=== PATIENT | male | born 1950 | race Caucasian/White ===

== ENCOUNTER 2018-08-21 05:13 | Emergency (ER) | payer MEDICARE, OTHER, SELFPAY ==
[2018-08-21 05:20] VITALS: BP 188/92; PULSE 88; RESP 20; TEMP 36.8; O2SAT 99; BMI 28.0
--- NOTE | 2018-08-21 05:28 | ED.ALLEREA ---
HPI - Allergic Reaction General Chief complaint: Allergic Reaction Stated complaint: states allergic reaction face is swollen left side Time Seen by Provider: 08/21/18 05:20 Source: patient Mode of arrival: ambulatory Limitations: no limitations History of Present Illness HPI narrative: Patient is 67-year-old male who presents with lip swelling rash and pruritus. He says that he has been taking amoxicillin as for the last 2 weeks for a dental infection. He noticed yesterday he had some itching. He went to bed woke up and had significant upper lip swelling. No difficulty talking or swallowing. His tongue he has started feeling tingling but has no swelling. He has obvious hives on his legs and arms. He also takes enalapril for blood pressure. Which he has been on for number of years. MD complaint: allergic reaction, hives and facial swelling Related Data Home Medications Medication Instructions Recorded Confirmed ASPIRIN (Aspirin Low Dose) 81 mg PO QDAY #0 06/10/10 07/29/18 Enalapril Maleate (Vasotec) 20 mg PO QDAY #0 06/10/10 07/29/18 IBUPROFEN (Motrin / Advil) 200 mg PO PRN #0 06/10/10 07/29/18 fluticasone propionate 50 1 spray NASAL DAILY 09/11/17 07/29/18 mcg/actuation nasal spray,suspension sildenafil (antihypertensive) 20 20 mg PO TID 09/11/17 07/29/18 mg tablet Respironics Dreamstation CPAP #1 ea 07/29/18 07/29/18 Previous Rx's Medication Instructions Recorded epinephrine 0.3 mg IM Q10M PRN #1 each 08/21/18 prednisone 50 mg PO DAILY #5 tab 08/21/18 Allergies Allergy/AdvReac Type Severity Reaction Status Date / Time No Known Drug Allergies Allergy Unverified 07/29/18 14:44 Review of Systems Review of Systems ROS Unobtainable: All systems reviewed & are unremarkable except as noted in HPI and below Constitutional Denies chills, Denies fever(s), Denies lethargy and Denies weakness Eyes Denies change in vision, Denies eye discharge, Denies irritation and Denies loss of vision ENT Ears, Nose, Mouth, and Throat: Reports as per HPI, Denies change in voice, Reports lip swelling, Denies neck pain, Denies sore throat, Denies throat swelling and Denies tongue swelling Cardiovascular Denies chest pain, Denies irregular heart rhythm, Denies lightheadedness, Denies palpitations, Denies dyspnea, Denies dyspnea on exertion and Denies orthopnea Respiratory Denies cough, Denies dyspnea, Denies dyspnea on exertion and Denies wheezing Genitourinary Denies hematuria, Denies flank pain, Denies urinary incontinence and Denies urinary urgency Musculoskeletal Denies neck pain Integumentary/Breasts Denies pruritus, Denies erythema, Denies rash and Denies wounds Neurologic Denies loss of vision and Denies weakness Endocrine Denies palpitations Allergic/Immunologic Reports lip swelling, Denies throat swelling, Denies tongue swelling and Denies wheezing [facility]LY [facility] Medical History Hypertension (Acute) Surgical History History of hernia surgery (Acute) History of lumbar discectomy (Acute) History of vasectomy (Acute) Family History Father Cancer Mother Hypertension Brother No problems noted. Social History Smoking Status: Former smoker caffeine: Yes (2-3 per day) frequency: 1-2 times per week Family History Father Cancer Mother Hypertension Brother No problems noted. Social History Smoking Status: Former smoker caffeine: Yes (2-3 per day) frequency: 1-2 times per week Exam Initial Vital Signs Initial Vital Signs: Vital Signs Temperature 98.3 F 08/21/18 05:20 Pulse Rate 88 08/21/18 05:20 Respiratory Rate 20 08/21/18 05:20 Blood Pressure 188/92 H 08/21/18 05:20 Pulse Oximetry 99 08/21/18 05:20 GENERAL: Alert male with obvious upper lip swelling and in no acute distress. HEENT: Head atraumatic,EOMI, pupils reactive, upper lip swelling more left-sided facial swelling no tongue swelling no uvula deviation no hoarseness of voice CARDIOVASCULAR: Regular rate and rhythm without murmurs, rubs or gallops. RESPIRATORY: Breath sounds equal bilaterally, no wheezes rales or rhonchi. ABDOMEN: Soft, nontender. Normoactive bowel sounds all 4 quadrants. No guarding or rebound. EXTREMITIES: Normal range of motion, no clubbing or edema. Neurovascularly intact NEUROLOGICAL: Alert and oriented x4.Normal gait and speech. Cranial nerves II through XII grossly intact. SKIN: Hives knees and arms. Course Orders Ordered: Discontinued Medications Diphenhydramine HCl (Benadryl) 25 mg IV NOW ONE Stop: 08/21/18 05:29 Last Admin: 08/21/18 05:39 Dose: 25 mg Epinephrine HCl (Adrenalin) 0.3 mg IM NOW ONE Stop: 08/21/18 05:29 Last Admin: 08/21/18 05:36 Dose: 0.3 mg Methylprednisolone (Solu-Medrol 125 Mg Vial) 125 mg IV NOW ONE Stop: 08/21/18 05:29 Last Admin: 08/21/18 05:35 Dose: 125 mg Vital Signs - 8 hr 08/21/18 05:20 08/21/18 05:48 08/21/18 06:34 Temperature 98.3 F Pulse Rate 88 86 75 Respiratory Rate 20 22 15 Blood Pressure 188/92 H Blood Pressure [Left Arm] 170/87 H 154/72 H Pulse Oximetry 99 98 97 MDM - Allergic Reaction MDM Narrative Medical decision making narrative: Difficult to tell if patient's reaction it is from amoxicillin or gallop girl. However with the urticaria and hives I think likely from amoxicillin. Initially given epinephrine Solu-Medrol and Benadryl. He did have significant improvement although still swollen. I recommend that he stop his enalapril and discussed with this PCP alternatives also he should stop the amoxicillin as well. Discharge Plan Departure Patient Disposition: Home Clinical Impression: Allergic reaction Qualifiers: Encounter type: initial encounter Qualified Code(s): T78.40XA - Allergy, unspecified, initial encounter Instructions: DI for Anaphylaxis Activity Restrictions/Additional Instructions: *You have been diagnosed with allergic reaction *What to do: Not sure what medication your allergic to. Possible antibiotic versus blood pressure medication enalapril. The stopped taking both of these medications immediately. *Continue to take medications as directed Epinephrine injection if needed for tongue swelling or lip swelling Prednisone 50 mg once daily for 5 days Benadryl 25-50 mg every 6 hours if needed for itching *Follow up with your primary care provider in 2-3 days *Return to ER if you should have increasing tongue swelling, lip swelling, hoarse voice, difficulty breathing or any new, worsening or concerning symptoms Prescriptions: New epinephrine 0.3 mg/0.3 mL auto-injector 0.3 mg IM Q10M PRN (Reason: anaphylaxis) Qty: 1 RF: 0 prednisone 50 mg tablet 50 mg PO DAILY Qty: 5 RF: 0 No Action Enalapril Maleate (Vasotec) 20 mg PO QDAY Qty: 0 RF: 0 ASPIRIN (Aspirin Low Dose) 81 mg PO QDAY Qty: 0 RF: 0 IBUPROFEN (Motrin / Advil) 200 mg PO PRN Qty: 0 RF: 0 Respironics Dreamstation CPAP Qty: 1 RF: 0 sildenafil (antihypertensive) 20 mg tablet 20 mg PO TID RF: 0 fluticasone propionate 50 mcg/actuation spray,suspension 1 spray NASAL DAILY RF: 0 Referrals: Luiz Paul MD [Primary Care Provider] -
[2018-08-21] MEDS: methylPREDNISolone 125 MG/2 ML VIAL IV (05:35)
[2018-08-21] MEDS: EPINEPHrine 1 MG/ML AMPUL 0.3 MG IM (05:36)
[2018-08-21] MEDS: diphenhydrAMINE 50 MG/ML VIAL 25 MG IV (05:39)
[2018-08-21 05:48] VITALS: BP 170/87; PULSE 86; RESP 22; O2SAT 98
[2018-08-21 06:34] VITALS: BP 154/72; PULSE 75; RESP 15; O2SAT 97
[2018-08-21 07:47] VITALS: BP 160/81; PULSE 79; RESP 18; TEMP 36.8; O2SAT 95
== END 2018-08-21 07:46 | disposition home or self-care (01) ==
PROVIDERS: Emergency Provider Emergency Medicine; Family Provider Family Medicine; PCP Family Medicine
DX: T78.40XA Allergy, unspecified, initial encounter (principal)
CPT/HCPCS: 36591; 96372; 96374; 96375; 99282; 99284; J0171; J1200; J2930

== ENCOUNTER 2018-10-21 06:24 | Day surgery (SDC) | payer MEDICARE, OTHER, SELFPAY ==
[2018-10-21] VITALS (7 sets, daily range): BP systolic 88–136; BP diastolic 54–90; PULSE 51–96; RESP 8–16; TEMP 36.2–36.5; O2SAT 95–99; BMI 26.8
--- NOTE | 2018-10-21 | PATH_ITS ---
[facility] Accession Number: [id number] . 01 Material submitted: . body - POLYP AT 55 CM . 02 Diagnosis: Colon at 55 cm, Polyp: Serrated lesion, cannot exclude sessile serrated adenoma. [facility]/10/22/2018 . 02 Electronically signed: . Etienne Martin MD, PhD, Pathologist NPI- [id number] . 01 Gross description: . POLYP AT 55 CM: Received in formalin are 4 fragment(s) of musa, soft tissue measuring 0.1 x 0.1 x 0.1 cm to 0.3 x 0.3 x 0.2 cm which is entirely submitted and submitted entirely in 1 cassette(s) /DMC /DMC . 02 Pathologist provided ICD-10: D12.6 . 02 CPT . 156870 Performed at: 01 [facility] [address], [place], [place] [id number] MD Dash Kowalski MD Phone: [phone] Performed at: 02 [facility] [address] [place], [place] [id number] MD Earline Murphy MD Phone: [phone]
--- NOTE | 2018-10-21 07:17 | PM.HP.1 ---
History of Present Illness Date Patient Seen: 10/21/18 Time Patient Seen: 07:28 Chief complaint: [id number] Narrative: Patient presents for colorectal screening. His most recent colonoscopy was 5 years ago which he reports as normal His father and grandfather both had colorectal cancer in advanced age. On further history denies any recent gastrointestinal symptoms. No nausea, vomiting, abdominal pain, loss of appetite, unexplained weight loss, change in bowel habits, diarrhea, constipation, melena, hematochezia, or bright red blood per rectum. Patient History Medical History Hypertension (Acute) Surgical History History of hernia surgery (Acute) History of lumbar discectomy (Acute) History of vasectomy (Acute) Family History Father Cancer Mother Hypertension Brother No problems noted. Social History Smoking Status: Former smoker caffeine: Yes (2-3 per day) frequency: 1-2 times per week Family & Social History Family History Father Cancer Mother Hypertension Brother No problems noted. Tobacco & Substance use: Smoking Status Former smoker alcohol intake frequency holiday/special occasion Substance Use Type does not use Meds Home Medications Medication Instructions Recorded Confirmed Type Enalapril Maleate (Vasotec) 20 mg PO QDAY #0 06/10/10 10/21/18 History Respironics Dreamstation CPAP #1 ea 07/29/18 07/29/18 History Allergies Allergy/AdvReac Type Severity Reaction Status Date / Time amoxicillin Allergy Swelling Verified 10/21/18 07:20 of Lip/Tongue/Throat Review of Systems Review of Systems All systems reviewed & are unremarkable except as noted in HPI and below Exam Vital Signs (past 8 hours): General-adult male no acute distress, well nourished HEENT-moist mucous membranes, no scleral icterus Neck-supple with full range of motion, no lymphadenopathy Chest- no labored respirations, clear to auscultation bilaterally Cardiac-regular rate and rhythm Abdomen-soft, nontender, non distended Extremities-no edema, warm well perfused Neurological-alert and oriented x 3. No focal deficits Skin-normal temperature and turgor, no rashes or ulcers Assessment & Plan Assessment & Plan narrative: Patient is requiring colorectal screening. Colonoscopy is recommended. Technical details were discussed. Risks, benefits, alternatives explained. Risks including but not limited to sedation, aspiration, bleeding, pain, missed lesion, incomplete examination, need for further radiographic studies, colonic perforation, need for major abdominal surgery, and all attendant risks major surgery were discussed at length. All questions were answered to their satisfaction, and they voiced understanding.
[2018-10-21] MEDS: SODIUM CHLORIDE 0.9% 1,000 ML 200 ML IV (07:30)
--- NOTE | 2018-10-21 07:30 | PM.PREOP ---
Pre-operative Note Interval Note History & Physical reviewed/Exam performed by Physician: Yes Changes to H&P: No ASA Class (for procedural sedation): II
--- NOTE | 2018-10-21 07:55 | PM.OP.ENDO ---
Operative Date/Time/Diagnoses Date of procedure: 10/21/18 Time of procedure: 07:55 Pre-op diagnosis: screening colonoscopy Procedure & Clinicians Study performed: colonoscopy Same procedure as scheduled: Yes Indications: screening. Last scope was 5 years ago family history of colon cancer Surgeon: Hank Puga Procedure Notes SCOAP/Timeout: performed Procedure in detail: Digital rectal exam performed normal. Scope inserted into the anus advanced through the rectum sigmoid descending transverse and ended at the ileocecal valve. The scope was carefully withdrawn. The quality of the prep was excellent. One polyp identified at 55 cm biopsies taken, flat an unable to snare. Scope withdrawal time: 14 Sedation minutes: 35 Findings: polyp Specimen(s): other (polyp 55 cm) Impression: polyp Recommendations: Colonscopy in 5 years Disposition: same day surgery
[2018-10-21] MEDS: MIDAZOLAM 5 MG/5 ML VIAL IV (08:09)
[2018-10-21] MEDS: fentaNYL 250 MCG/5 ML INJ IV (08:09)
== END 2018-10-21 09:32 | disposition home or self-care (01) ==
PROVIDERS: PCP Student in an Organized Health Care Education/Training Program; Visit Provider Surgery
PROC: 0DJD8ZZ Inspection of Lower Intestinal Tract, Via Natural or Artificial Opening Endoscopic (ICD-10-PCS; CPT 45378; principal; 2018-10-21 07:45)
DX: Z12.11 Encounter for screening for malignant neoplasm of colon (principal); D12.6 Benign neoplasm of colon, unspecified; I10 Essential (primary) hypertension; Z80.0 Family history of malignant neoplasm of digestive organs; Z87.891 Personal history of nicotine dependence
CPT/HCPCS: 45380; 88305; 99152; 99153; J2250; J3010

== ENCOUNTER → 2020-04-13 16:21 | Outpatient (CLI) | payer MEDICARE, OTHER, SELFPAY ==
--- NOTE | 2020-04-13 | DI.RAD.S_ITS ---
PROCEDURE: XR KNEE RT 3V INDICATIONS: RIGHT KNEE PAIN TECHNIQUE: 3 views of the knee were acquired. COMPARISON: None. FINDINGS: Bones: No fractures or dislocations. No suspicious bony lesions. Mild medial joint space narrowing. Scattered degenerative subchondral sclerosis and spurring. Soft tissues: Eaji-dl-mdcbrmvy joint effusion. Scattered vascular calcifications. IMPRESSION: Degenerative changes as above. Mild to moderate joint effusion. If the patient's pain or other symptoms persist, consider further evaluation with MRI Dictated by: William Munguia M.D. on 04/13/2020 at 17:14 Approved by: William Munguia M.D. on 04/13/2020 at 17:21
== END ==
PROVIDERS: PCP Student in an Organized Health Care Education/Training Program; Referring Provider Student in an Organized Health Care Education/Training Program; Visit Provider Student in an Organized Health Care Education/Training Program
DX: M25.561 Pain in right knee (principal); M25.461 Effusion, right knee
CPT/HCPCS: 73562

== ENCOUNTER → 2020-04-16 17:37 | Outpatient (CLI) | payer MEDICARE, OTHER, SELFPAY ==
--- NOTE | 2020-04-16 17:39 | DI.MRI.S_ITS ---
PROCEDURE: MR KNEE RT WO CON INDICATIONS: RIGHT KNEE PAIN TECHNIQUE: Noncontrast sagittal PD fast spin echo and T2 fast spin echo with fat saturation, sagittal 3-D FLASH with fat saturation; coronal T1 spin echo and PD fast spin echo with fat saturation, and axial PD fast spin echo with fat saturation through the knee. COMPARISON: [facility], CR, XR KNEE RT 3V, 04/13/2020, 16:34. FINDINGS: Image quality: Excellent. Menisci: There is a horizontal oblique tear of the body of the medial meniscus extending to the femoral articular surface with a small superiorly displaced flap in the medial femoral gutter. There is also a suspected small flap tear at the posterior root attachment of the medial meniscus projecting superiorly towards the intercondylar notch. The lateral meniscus is intact. Cruciate ligaments: The anterior and posterior cruciate ligaments appear intact. Medial structures: Mild thickening of the proximal medial collateral ligament is likely the sequela of a prior sprain. Some of the deep fibers appear to be chronically torn near their femoral attachments. The semimembranosus tendon insertions appear intact. Visualized portions of the pes anserinus tendons appear normal. No abnormal bursal fluid. Lateral structures: The lateral collateral ligament, long and short heads of the biceps femoris tendon appear intact. The popliteus tendon demonstrates mild tendinosis at its femoral insertion.. No signs of posterolateral corner injury. Iliotibial band appears normal. Anterior structures: The quadriceps and patellar tendons appear intact. Patellar alignment is normal. No femoral trochlear dysplasia or ventral trochlear prominence. No edema in the infrapatellar fat pad. Bones and cartilage: No bone marrow contusions or fractures. There is high-grade partial-thickness cartilage thinning in the weight-bearing portion of the medial femorotibial compartment. The lateral compartment articular cartilages demonstrate mild surface irregularity without a full-thickness defect. There is high-grade partial-thickness cartilage loss in the median ridge of the patella and deep cartilage fissuring in the trochlear groove.. Joint space: A small knee joint effusion is present. There is a small medial popliteal cyst. IMPRESSION: 1. Horizontal oblique tear of the body of the medial meniscus extending to the femoral articular surface with a superiorly displaced flap in the medial femoral gutter. Additional partial tear of the posterior root attachment of the medial meniscus with a small superiorly displaced meniscal flap. 2. Chronic moderate grade sprain of the proximal medial collateral ligament. 3. 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 There is also focal grade 3 chondromalacia in the anterior compartment and mild grade 2 chondromalacia in the lateral compartment. 4. Small joint effusion. Small medial popliteal cyst. Dictated by: Tahir Javed M.D. on 04/19/2020 at 8:01 Approved by: Tahir Javed M.D. on 04/19/2020 at 8:25
== END ==
PROVIDERS: PCP Student in an Organized Health Care Education/Training Program; Referring Provider Student in an Organized Health Care Education/Training Program; Visit Provider Student in an Organized Health Care Education/Training Program
DX: M25.561 Pain in right knee (principal); S83.241A Other tear of medial meniscus, current injury, right knee, initial encounter; S83.411A Sprain of medial collateral ligament of right knee, initial encounter; M94.261 Chondromalacia, right knee; M25.461 Effusion, right knee; M71.21 Synovial cyst of popliteal space [Baker], right knee
CPT/HCPCS: 73721

== ENCOUNTER 2020-12-28 16:00 | Outpatient (RCR) | payer MEDICARE, OTHER, SELFPAY ==
--- NOTE | 2020-12-07 14:08 | PT.OIE ---
Current Diagnoses Unilateral primary osteoarthritis, right knee (12/07/20) Stiffness of right knee, not elsewhere classified (12/07/20) Aftercare following joint replacement surgery (12/07/20) Past Medical History (Last Updated 09/18/20 @ 21:43 by CHUN Curtis) Chronic pain of multiple joints Depressive disorder, not elsewhere classified (2003) Fatigue History of hernia surgery History of lumbar discectomy History of vasectomy Hypertension (~2003) Insomnia Obstructive sleep apnea Snoring Past Surgical History (Last Reviewed 09/18/20 @ 21:25 by CHUN Curtis) History of hernia surgery History of lumbar discectomy History of vasectomy Visit Care Team Role Provider Type Mariella Ribera MD Primary Care Provider Physician Specialty: Family Practice Address: [address] [place] [address], [facility] [place], [place], [facility] Email: [email or web address] Frieda Carballo PA-C Attending Provider Non-Staff Referring Provider Specialty: General Surgery Address: [address] [place] [address], [id number] Email: Physical Therapy Initial Evaluation PT-OP-A Visit Information Start: 12/07/20 13:47 Freq: Status: Active Protocol: Document 12/07/20 10:30 DCW (Rec: 12/07/20 14:08 DCW [id number]) Out-Patient Physical Therapy Visit Information Visit Information Visit Type Initial Evaluation Visit Start Time 10:30 Visit Stop Time 11:15 Total Visit Minutes 45 Visit Number 1 Number of INVENTORY MANAGEMENT SPECIALIST Visits 0 Evaluation Information Evaluation Date 12/07/20 PT-OP-B Current Condition Start: 12/07/20 13:47 Freq: Status: Active Protocol: Document 12/07/20 10:30 DCW (Rec: 12/07/20 14:08 DCW [id number]) Current Condition History of Current Condition Onset Date 11/30/20 Current Complaints Right knee pain, stiffness s/p partial knee replacement History of Current Condition Pt is a 69 year old male presenting to skilled therapy one week s/p right medial partial knee replacement. Pt has mainly been using his SPC to get around. Notes he felt great the first day or two after surgery, but on post-op day three, he was really stiff and sore. Pt reports he was instructed to work on getting it (his knee) to 90? and getting up and walking. Pt notes he has had a left foot drop for the last ~48 years, unsure of the cause, but believes he may have had polio in his youth. PT-OP-C Subjective Start: 12/07/20 13:47 Freq: Status: Active Protocol: Document 12/07/20 10:30 DCW (Rec: 12/07/20 14:08 DCW [id number]) OP-PT Subjective Patient Comments Patient Comments I'd like to get back to walking Swish with my . She's quite a bit younger than I am, so I need to be able to keep up. Patient Reported Progress Improving Patient Questionnaires Lower Extremity Functional Scale LEFS Score 21.25% LEFS Impairment 60 to 79% Impaired (Score 17- 31) OP-PT Pain Assessment Pain Assessment Grid Paper Pain Assessment Grid Completed Yes Location Right Knee Intensity 8 Scale Used Numeric (0 - 10) Description Acute PT-OP-E Functional Tests Start: 12/07/20 13:47 Freq: Status: Active Protocol: Document 12/07/20 10:30 DCW (Rec: 12/07/20 14:08 DCW [id number]) Functional Tests 6 Minute Walk Test Distance 617' Device Used SPC Comments 1.71 ft/sec PT-OP-K Range of Motion Start: 12/07/20 13:47 Freq: Status: Active Protocol: Document 12/07/20 10:30 DCW (Rec: 12/07/20 14:08 DCW [id number]) Knee Goniometric Range of Motion Knee Right Patient Position Supine Flexion Active (degrees) 86 Flexion Passive (degrees) 90 Extension Active (degrees) 5 Extension Passive (degrees) 3 Knee ROM Limitations Knee ROM Limitations Soft Tissue Tightness,Pain, Swelling PT-OP-M Strength Start: 12/07/20 13:47 Freq: Status: Active Protocol: Document 12/07/20 10:30 DCW (Rec: 12/07/20 14:08 DCW [id number]) Knee Strength Knee Manual Muscle Testing Right Flexion (S2) 4 Good Extension (L3) 4+ Good+ Left Flexion (S2) 4+ Good+ Extension (L3) 5 Normal PT-OP-Q Treatments Start: 12/07/20 13:47 Freq: Status: Active Protocol: Document 12/07/20 10:30 DCW (Rec: 12/07/20 14:08 DCW [id number]) Therapeutic Exercises Sitting Exercises 3 Sitting Exercise Name Extension stretch Side right 2 Sitting Exercise Name Heel slides Side right 1 Sitting Exercise Name Ankle pumps Side right PT-OP-T Assessment and Plan Start: 12/07/20 13:47 Freq: Status: Active Protocol: Document 12/07/20 10:30 DCW (Rec: 12/07/20 14:08 DC [id number]) Physical Therapy Assessment Rehab Potential Rehabilitation Potential Excellent Evaluation Complexity Number of Personal Factors/Comorbidities 1-2 Number of Body Systems Impaired 1-2 Clinical Presentation at Evaluation Stable Impairments Impairments Activity Tolerance,Functional Activities,Functional Mobility ,Gait,Pain,ROM,Strength Goals Three Impairment Pt displays limitations to right knee ROM, 5-86? Penitentiary Goal (LTG) Pt to improve right knee ROM to 0-120? in order to return to prior level of function LTG Duration 02/06/21 Two Impairment Pt unable to participate in walks around [place] with his Short Term Goal (STG) Pt to increase 6 MWT to 1000' without an assistive device to show increased tolerance to gait STG Duration 01/06/21 Penitentiary Goal (LTG) Pt to return to walking a full lap around [place] without increased knee pain LTG Duration 02/06/21 One Impairment Pt does not have an appropriate home exercise program Short Term Goal (STG) Pt does not have an appropriate HEP STG Duration 01/06/21 Assessment Summary Assessment Pt presents with signs and symptoms consistent with one week s/p right partial knee replacement. 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 Right knee extension doing very well at 5?, minimal extension lag at this point. Flexion needs some improvement, only 86? at time of evaluation, expect increased flexion with stretching and exercise. Pt receptive to HEP, anxious to get working to improve recovery time. Pt will likely do very well with rehab. Physical Therapy Plan Frequency and Duration Frequency of Treatment 2x/Week Duration of Treatment Two months Plan of Care Start Date 12/07/20 Plan of Care End Date 02/06/21 Therapeutic Interventions Therapeutic Interventions Gait Training,Joint Mobilizations,Manual Therapy, Neuromuscular Re-education, Patient/Caregiver Education, Self-Care/Home Management, Therapeutic Activities, Therapeutic Exercises Modalities Cold Pack/Ice Massage,Electric Stimulation,Hot Packs, Ultrasound Next Visit Focus/Plan Next Note Type Treatment Note Next Visit Plan ROM, strengthening
--- NOTE | 2020-12-07 14:09 | PT.OPPOC ---
Physical, Occupational & Speech Therapy At [facility] Current Diagnoses Unilateral primary osteoarthritis, right knee (12/07/20) Stiffness of right knee, not elsewhere classified (12/07/20) Aftercare following joint replacement surgery (12/07/20) Visit Care Team Role Provider Type Mariella Ribera MD Primary Care Provider Physician Specialty: Family Practice Address: [address] [place] [address], [address], [place], [address] Email: [email or web address] Frieda Carballo PA-C Attending Provider Non-Staff Referring Provider Specialty: General Surgery Address: [address] [place] [address], [place], [address] Email: Plan Of Care PT-OP-T Assessment and Plan Start: 12/07/20 13:47 Freq: Status: Active Protocol: Document 12/07/20 10:30 DCW (Rec: 12/07/20 14:08 DCW [id number]) Physical Therapy Assessment Rehab Potential Rehabilitation Potential Excellent Evaluation Complexity Number of Personal Factors/Comorbidities 1-2 Number of Body Systems Impaired 1-2 Clinical Presentation at Evaluation Stable Impairments Impairments Activity Tolerance,Functional Activities,Functional Mobility ,Gait,Pain,ROM,Strength Goals Three Impairment Pt displays limitations to right knee ROM, 5-86? Air Conditioning Mechanic Goal (LTG) Pt to improve right knee ROM to 0-120? in order to return to prior level of function LTG Duration 02/06/21 Two Impairment Pt unable to participate in walks around [place] with his Short Term Goal (STG) Pt to increase 6 MWT to 1000' without an assistive device to show increased tolerance to gait STG Duration 01/06/21 Air Conditioning Mechanic Goal (LTG) Pt to return to walking a full lap around [place] without increased knee pain LTG Duration 02/06/21 One Impairment Pt does not have an appropriate home exercise program Short Term Goal (STG) Pt does not have an appropriate HEP STG Duration 01/06/21 Assessment Summary Assessment Pt presents with signs and symptoms consistent with one week s/p right partial knee replacement. 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 Right knee extension doing very well at 5?, minimal extension lag at this point. Flexion needs some improvement, only 86? at time of evaluation, expect increased flexion with stretching and exercise. Pt receptive to HEP, anxious to get working to improve recovery time. Pt will likely do very well with rehab. Physical Therapy Plan Frequency and Duration Frequency of Treatment 2x/Week Duration of Treatment Two months Plan of Care Start Date 12/07/20 Plan of Care End Date 02/06/21 Therapeutic Interventions Therapeutic Interventions Gait Training,Joint Mobilizations,Manual Therapy, Neuromuscular Re-education, Patient/Caregiver Education, Self-Care/Home Management, Therapeutic Activities, Therapeutic Exercises Modalities Cold Pack/Ice Massage,Electric Stimulation,Hot Packs, Ultrasound Next Visit Focus/Plan Next Note Type Treatment Note Next Visit Plan ROM, strengthening Plan of Care Dates Plan of Care Start Date 12/07/20 Plan of Care End Date 02/06/21 Electronically Signed by: Modesto Edwards, PT 12/07/20 [id number] Please Sign and Return: I have reviewed this Plan of Care and certify that the skilled therapy services above are required to meet the patient?s needs. Physician Signature Date Printed Name and Credentials Clinical Instructor Signature Printed Name and Credentials
--- NOTE | 2020-12-09 11:17 | PT.OTN ---
Current Diagnoses Unilateral primary osteoarthritis, right knee (12/09/20) Stiffness of right knee, not elsewhere classified (12/09/20) Aftercare following joint replacement surgery (12/09/20) Physical Therapy Treatment Note PT-OP-A Visit Information Start: 12/07/20 13:47 Freq: Status: Active Protocol: Document 12/09/20 10:30 DCW (Rec: 12/09/20 11:17 DCW [id number]) Out-Patient Physical Therapy Visit Information Visit Information Visit Type Treatment Note Visit Start Time 10:30 Visit Stop Time 11:15 Total Visit Minutes 45 Visit Number 2 Number of RETENTION SPECIALIST Visits 0 Evaluation Information Evaluation Date 12/07/20 PT-OP-B Current Condition Start: 12/07/20 13:47 Freq: Status: Active Protocol: Document 12/07/20 10:30 DCW (Rec: 12/07/20 14:08 DCW [id number]) Current Condition History of Current Condition Onset Date 11/30/20 Current Complaints Right knee pain, stiffness s/p partial knee replacement History of Current Condition Pt is a 69 year old male presenting to skilled therapy one week s/p right medial partial knee replacement. Pt has mainly been using his SPC to get around. Notes he felt great the first day or two after surgery, but on post-op day three, he was really stiff and sore. Pt reports he was instructed to work on getting it (his knee) to 90? and getting up and walking. Pt notes he has had a left foot drop for the last ~48 years, unsure of the cause, but believes he may have had polio in his youth. PT-OP-C Subjective Start: 12/07/20 13:47 Freq: Status: Active Protocol: Document 12/09/20 10:30 DCW (Rec: 12/09/20 11:17 DCW [id number]) OP-PT Subjective Patient Comments Patient Comments I did all those exercises, and then my knee swelled up a lot, so I stopped. PT-OP-E Functional Tests Start: 12/07/20 13:47 Freq: Status: Active Protocol: Document 12/07/20 10:30 DCW (Rec: 12/07/20 14:08 DCW [id number]) Functional Tests 6 Minute Walk Test Distance 617' Device Used SPC Comments 1.71 ft/sec PT-OP-K Range of Motion Start: 12/07/20 13:47 Freq: Status: Active Protocol: Document 12/07/20 10:30 DCW (Rec: 12/07/20 14:08 DCW [id number]) Knee Goniometric Range of Motion Knee Right Patient Position Supine Flexion Active (degrees) 86 Flexion Passive (degrees) 90 Extension Active (degrees) 5 Extension Passive (degrees) 3 Knee ROM Limitations Knee ROM Limitations Soft Tissue Tightness,Pain, Swelling PT-OP-M Strength Start: 12/07/20 13:47 Freq: Status: Active Protocol: Document 12/07/20 10:30 DCW (Rec: 12/07/20 14:08 DCW [id number]) Knee Strength Knee Manual Muscle Testing Right Flexion (S2) 4 Good Extension (L3) 4+ Good+ Left Flexion (S2) 4+ Good+ Extension (L3) 5 Normal PT-OP-Q Treatments Start: 12/07/20 13:47 Freq: Status: Active Protocol: Document 12/09/20 10:30 DCW (Rec: 12/09/20 11:17 DCW [id number]) Cardio Equipment Recumbent Bicycle Duration (Minutes) 5 Resistance 0 Seat Position 6 Other half rotations Therapeutic Exercises Supine Exercises 2 Supine Exercise Name Extension stretch Side right 1 Supine Exercise Name SAQ Side right Resistance 8# Standing Exercises 4 Standing Exercise Name Hip Abd Side bilateral Resistance Green Equipment Used T-band 3 Standing Exercise Name Hip Ext Side bilateral Resistance Green Equipment Used T-band 2 Standing Exercise Name TKE Side right Resistance Lv 2 Equipment Used T-band 1 Standing Exercise Name Step stretch Side right Manual Therapy Treatment Joint Mobilizations 1 Joint R Knee Direction P->A Grade II Body Position Hooklying Other Other Manual Treatments PROM manual flexion PT-OP-T Assessment and Plan Start: 12/07/20 13:47 Freq: Status: Active Protocol: Document 12/09/20 10:30 DCW (Rec: 12/09/20 11:17 DCW [id number]) Physical Therapy Assessment Impairments Impairments Activity Tolerance,Functional Activities,Functional Mobility ,Gait,Pain,ROM,Strength Goals Three Impairment Pt displays limitations to right knee ROM, 5-86? Lining Feller Goal (LTG) Pt to improve right knee ROM to 0-120? in order to return to prior level of function LTG Duration 02/06/21 Two Impairment Pt unable to participate in walks around [place] with his Short Term Goal (STG) Pt to increase 6 MWT to 1000' without an assistive device to show increased tolerance to gait STG Duration 01/06/21 Lining [place]eller Goal (LTG) Pt to return to walking a full lap around [place] without increased knee pain LTG Duration 02/06/21 One Impairment Pt does not have an appropriate home exercise program Short Term Goal (STG) Pt does not have an appropriate HEP STG Duration 01/06/21 Assessment Summary Assessment Pt tolerated treatment very well today, is having more swelling today vs his evaluation, but extension is approaching 0 and flexion measured at 94 today. Doing well with HEP. Physical Therapy Plan Frequency and Duration Frequency of Treatment 2x/Week Duration of Treatment Two months Plan of Care Start Date 12/07/20 Plan of Care End Date 02/06/21 Therapeutic Interventions Therapeutic Interventions Gait Training,Joint Mobilizations,Manual Therapy, Neuromuscular Re-education, Patient/Caregiver Education, Self-Care/Home Management, Therapeutic Activities, Therapeutic Exercises Modalities Cold Pack/Ice Massage,Electric Stimulation,Hot Packs, Ultrasound Next Visit Focus/Plan Next Note Type Treatment Note Next Visit Plan ROM, strengthening
--- NOTE | 2020-12-14 11:14 | PT.OTN ---
Current Diagnoses Unilateral primary osteoarthritis, right knee (12/14/20) Stiffness of right knee, not elsewhere classified (12/14/20) Aftercare following joint replacement surgery (12/14/20) Physical Therapy Treatment Note PT-OP-A Visit Information Start: 12/07/20 13:47 Freq: Status: Active Protocol: Document 12/14/20 10:30 DCW (Rec: 12/14/20 11:13 DCW [id number]) Out-Patient Physical Therapy Visit Information Visit Information Visit Type Treatment Note Visit Start Time 10:30 Visit Stop Time 11:15 Total Visit Minutes 45 Visit Number 3 Number of MOTOR RUNNER Visits 0 Evaluation Information Evaluation Date 12/07/20 PT-OP-B Current Condition Start: 12/07/20 13:47 Freq: Status: Active Protocol: Document 12/07/20 10:30 DCW (Rec: 12/07/20 14:08 DCW [id number]) Current Condition History of Current Condition Onset Date 11/30/20 Current Complaints Right knee pain, stiffness s/p partial knee replacement History of Current Condition Pt is a 69 year old male presenting to skilled therapy one week s/p right medial partial knee replacement. Pt has mainly been using his SPC to get around. Notes he felt great the first day or two after surgery, but on post-op day three, he was really stiff and sore. Pt reports he was instructed to work on getting it (his knee) to 90? and getting up and walking. Pt notes he has had a left foot drop for the last ~48 years, unsure of the cause, but believes he may have had polio in his youth. PT-OP-C Subjective Start: 12/07/20 13:47 Freq: Status: Active Protocol: Document 12/14/20 10:30 DCW (Rec: 12/14/20 11:13 DCW [id number]) OP-PT Subjective Patient Comments Patient Comments I've been using the small stationary bike at home, I can get all the way around on it, so I think it is bending better. PT-OP-E Functional Tests Start: 12/07/20 13:47 Freq: Status: Active Protocol: Document 12/07/20 10:30 DCW (Rec: 12/07/20 14:08 DCW [id number]) Functional Tests 6 Minute Walk Test Distance 617' Device Used SPC Comments 1.71 ft/sec PT-OP-K Range of Motion Start: 12/07/20 13:47 Freq: Status: Active Protocol: Document 12/07/20 10:30 DCW (Rec: 12/07/20 14:08 DCW [id number]) Knee Goniometric Range of Motion Knee Right Patient Position Supine Flexion Active (degrees) 86 Flexion Passive (degrees) 90 Extension Active (degrees) 5 Extension Passive (degrees) 3 Knee ROM Limitations Knee ROM Limitations Soft Tissue Tightness,Pain, Swelling PT-OP-M Strength Start: 12/07/20 13:47 Freq: Status: Active Protocol: Document 12/07/20 10:30 DCW (Rec: 12/07/20 14:08 DCW [id number]) Knee Strength Knee Manual Muscle Testing Right Flexion (S2) 4 Good Extension (L3) 4+ Good+ Left Flexion (S2) 4+ Good+ Extension (L3) 5 Normal PT-OP-Q Treatments Start: 12/07/20 13:47 Freq: Status: Active Protocol: Document 12/14/20 10:30 DCW (Rec: 12/14/20 11:13 DCW [id number]) Cardio Equipment Recumbent Bicycle Duration (Minutes) 5 Resistance 0 Seat Position 5 Other half-rotations Gym Equipment Shuttle Recovery Bilateral Squats Resistance 75# Shuttle Recovery Platform Stable Reps/Time hold end-range flexion Therapeutic Exercises Sidelying Exercises 1 Sidelying Exercise Name Hip abduction Side right Standing Exercises 2 Standing Exercise Name TKE Side right Resistance Lv 2 Equipment Used T-band Other Exercises 1 Other Exercise Name Step-ups/downs Side right Equipment Used 4 step Manual Therapy Treatment Joint Mobilizations 2 Joint R Patellofemoral Direction Inf-Sup Grade III Body Position Supine 1 Joint R Knee Direction P->A Grade II Body Position Hooklying Other Other Manual Treatments PROM manual flexion PT-OP-T Assessment and Plan Start: 12/07/20 13:47 Freq: Status: Active Protocol: Document 12/14/20 10:30 DCW (Rec: 12/14/20 11:13 DCW [id number]) Physical Therapy Assessment Impairments Impairments Activity Tolerance,Functional Activities,Functional Mobility ,Gait,Pain,ROM,Strength Goals Three Impairment Pt displays limitations to right knee ROM, 5-86? Pt Escort Goal (LTG) Pt to improve right knee ROM to 0-120? in order to return to prior level of function LTG Duration 02/06/21 Two Impairment Pt unable to participate in walks around [place] with his Short Term Goal (STG) Pt to increase 6 MWT to 1000' without an assistive device to show increased tolerance to gait STG Duration 01/06/21 Longterm Goal (LTG) Pt to return to walking a full lap around [place] without increased knee pain LTG Duration 02/06/21 One Impairment Pt does not have an appropriate home exercise program Short Term Goal (STG) Pt does not have an appropriate HEP STG Duration 01/06/21 Assessment Summary Assessment Pt ROM doing great post-op, increased PROM 0-114 and AROM 0-112 degrees. PT exhibiting no extension lag at this time. Physical Therapy Plan Frequency and Duration Frequency of Treatment 2x/Week Duration of Treatment Two months Plan of Care Start Date 12/07/20 Plan of Care End Date 02/06/21 Therapeutic Interventions Therapeutic Interventions Gait Training,Joint Mobilizations,Manual Therapy, Neuromuscular Re-education, Patient/Caregiver Education, Self-Care/Home Management, Therapeutic Activities, Therapeutic Exercises Modalities Cold Pack/Ice Massage,Electric Stimulation,Hot Packs, Ultrasound Next Visit Focus/Plan Next Note Type Treatment Note Next Visit Plan ROM, strengthening
--- NOTE | 2020-12-16 10:33 | PT.OTN ---
Current Diagnoses Unilateral primary osteoarthritis, right knee (12/16/20) Stiffness of right knee, not elsewhere classified (12/16/20) Aftercare following joint replacement surgery (12/16/20) Physical Therapy Treatment Note PT-OP-A Visit Information Start: 12/07/20 13:47 Freq: Status: Active Protocol: Document 12/16/20 09:45 DCW (Rec: 12/16/20 10:33 DCW [id number]) Out-Patient Physical Therapy Visit Information Visit Information Visit Type Treatment Note Visit Start Time 09:45 Visit Stop Time 10:30 Total Visit Minutes 45 Visit Number 4 Number of CAMPGROUND CLEANING ATTENDANT Visits 0 Evaluation Information Evaluation Date 12/07/20 PT-OP-B Current Condition Start: 12/07/20 13:47 Freq: Status: Active Protocol: Document 12/07/20 10:30 DCW (Rec: 12/07/20 14:08 DCW [id number]) Current Condition History of Current Condition Onset Date 11/30/20 Current Complaints Right knee pain, stiffness s/p partial knee replacement History of Current Condition Pt is a 69 year old male presenting to skilled therapy one week s/p right medial partial knee replacement. Pt has mainly been using his SPC to get around. Notes he felt great the first day or two after surgery, but on post-op day three, he was really stiff and sore. Pt reports he was instructed to work on getting it (his knee) to 90? and getting up and walking. Pt notes he has had a left foot drop for the last ~48 years, unsure of the cause, but believes he may have had polio in his youth. PT-OP-C Subjective Start: 12/07/20 13:47 Freq: Status: Active Protocol: Document 12/16/20 09:45 DCW (Rec: 12/16/20 10:33 DCW [id number]) OP-PT Subjective Patient Comments Patient Comments I'm a little slow today, I think I overdid it yesterday. Pt notes that he had a post- op appointment yesterday, they thought it looked good, but feel he should get scar mobs starting in a few days. PT-OP-E Functional Tests Start: 12/07/20 13:47 Freq: Status: Active Protocol: Document 12/07/20 10:30 DCW (Rec: 12/07/20 14:08 DCW [id number]) Functional Tests 6 Minute Walk Test Distance 617' Device Used SPC Comments 1.71 ft/sec PT-OP-K Range of Motion Start: 12/07/20 13:47 Freq: Status: Active Protocol: Document 12/07/20 10:30 DCW (Rec: 12/07/20 14:08 DCW [id number]) Knee Goniometric Range of Motion Knee Right Patient Position Supine Flexion Active (degrees) 86 Flexion Passive (degrees) 90 Extension Active (degrees) 5 Extension Passive (degrees) 3 Knee ROM Limitations Knee ROM Limitations Soft Tissue Tightness,Pain, Swelling PT-OP-M Strength Start: 12/07/20 13:47 Freq: Status: Active Protocol: Document 12/07/20 10:30 DCW (Rec: 12/07/20 14:08 DCW [id number]) Knee Strength Knee Manual Muscle Testing Right Flexion (S2) 4 Good Extension (L3) 4+ Good+ Left Flexion (S2) 4+ Good+ Extension (L3) 5 Normal PT-OP-Q Treatments Start: 12/07/20 13:47 Freq: Status: Active Protocol: Document 12/16/20 09:45 DCW (Rec: 12/16/20 10:33 DCW [id number]) Cardio Equipment Recumbent Bicycle Duration (Minutes) 6 Resistance 0 Seat Position 5 Other full rotations Gym Equipment Shuttle Recovery Bilateral Squats Resistance 75# Shuttle Recovery Platform Stable Reps/Time hold end-range flexion Therapeutic Exercises Sitting Exercises 5 Sitting Exercise Name HS Side right Resistance Lv 3 4 Sitting Exercise Name LAQ Side right Resistance 5# Standing Exercises 4 Standing Exercise Name Hip Abd Side bilateral Resistance Green Equipment Used T-band 3 Standing Exercise Name Hip Ext Side bilateral Resistance Green Equipment Used T-band 2 Standing Exercise Name TKE Side right Resistance Lv 2 Equipment Used T-band 1 Standing Exercise Name Step stretch Side right Other Exercises 1 Other Exercise Name Step-ups/downs Side right Equipment Used 4 step Manual Therapy Treatment Joint Mobilizations 2 Joint R Patellofemoral Direction Inf-Sup Grade III Body Position Supine 1 Joint R Knee Direction P->A Grade II Body Position Hooklying PT-OP-T Assessment and Plan Start: 12/07/20 13:47 Freq: Status: Active Protocol: Document 12/16/20 09:45 DCW (Rec: 12/16/20 10:33 DCW [id number]) Physical Therapy Assessment Impairments Impairments Activity Tolerance,Functional Activities,Functional Mobility ,Gait,Pain,ROM,Strength Goals Three Impairment Pt displays limitations to right knee ROM, 5-86? Manager Lab Goal (LTG) Pt to improve right knee ROM to 0-120? in order to return to prior level of function LTG Duration 02/06/21 Two Impairment Pt unable to participate in walks around [place] with his Short Term Goal (STG) Pt to increase 6 MWT to 1000' without an assistive device to show increased tolerance to gait STG Duration 01/06/21 Manager Lab Goal (LTG) Pt to return to walking a full lap around [place] without increased knee pain LTG Duration 02/06/21 One Impairment Pt does not have an appropriate home exercise program Short Term Goal (STG) Pt does not have an appropriate HEP STG Duration 01/06/21 Assessment Summary Assessment Pt continues to make great progress, AROM flexion to 119 degrees today. Physical Therapy Plan Frequency and Duration Frequency of Treatment 2x/Week Duration of Treatment Two months Plan of Care Start Date 12/07/20 Plan of Care End Date 02/06/21 Therapeutic Interventions Therapeutic Interventions Gait Training,Joint Mobilizations,Manual Therapy, Neuromuscular Re-education, Patient/Caregiver Education, Self-Care/Home Management, Therapeutic Activities, Therapeutic Exercises Modalities Cold Pack/Ice Massage,Electric Stimulation,Hot Packs, Ultrasound Next Visit Focus/Plan Next Note Type Treatment Note Next Visit Plan ROM, strengthening
--- NOTE | 2020-12-21 11:20 | PT.OTN ---
Current Diagnoses Unilateral primary osteoarthritis, right knee (12/21/20) Stiffness of right knee, not elsewhere classified (12/21/20) Aftercare following joint replacement surgery (12/21/20) Physical Therapy Treatment Note PT-OP-A Visit Information Start: 12/07/20 13:47 Freq: Status: Active Protocol: Document 12/21/20 10:30 DCW (Rec: 12/21/20 11:19 DCW [id number]) Out-Patient Physical Therapy Visit Information Visit Information Visit Type Treatment Note Visit Start Time 10:30 Visit Stop Time 11:15 Total Visit Minutes 45 Visit Number 5 Number of PASTER HAT LINING Visits 0 Evaluation Information Evaluation Date 12/07/20 PT-OP-B Current Condition Start: 12/07/20 13:47 Freq: Status: Active Protocol: Document 12/07/20 10:30 DCW (Rec: 12/07/20 14:08 DCW [id number]) Current Condition History of Current Condition Onset Date 11/30/20 Current Complaints Right knee pain, stiffness s/p partial knee replacement History of Current Condition Pt is a 69 year old male presenting to skilled therapy one week s/p right medial partial knee replacement. Pt has mainly been using his SPC to get around. Notes he felt great the first day or two after surgery, but on post-op day three, he was really stiff and sore. Pt reports he was instructed to work on getting it (his knee) to 90? and getting up and walking. Pt notes he has had a left foot drop for the last ~48 years, unsure of the cause, but believes he may have had polio in his youth. PT-OP-C Subjective Start: 12/07/20 13:47 Freq: Status: Active Protocol: Document 12/21/20 10:30 DCW (Rec: 12/21/20 11:19 DCW [id number]) OP-PT Subjective Patient Comments Patient Comments I may have over done it yesterday, notes he took a 20 minute walk yesterday. PT-OP-E Functional Tests Start: 12/07/20 13:47 Freq: Status: Active Protocol: Document 12/07/20 10:30 DCW (Rec: 12/07/20 14:08 DCW [id number]) Functional Tests 6 Minute Walk Test Distance 617' Device Used SPC Comments 1.71 ft/sec PT-OP-K Range of Motion Start: 12/07/20 13:47 Freq: Status: Active Protocol: Document 12/07/20 10:30 DCW (Rec: 12/07/20 14:08 DCW [id number]) Knee Goniometric Range of Motion Knee Right Patient Position Supine Flexion Active (degrees) 86 Flexion Passive (degrees) 90 Extension Active (degrees) 5 Extension Passive (degrees) 3 Knee ROM Limitations Knee ROM Limitations Soft Tissue Tightness,Pain, Swelling PT-OP-M Strength Start: 12/07/20 13:47 Freq: Status: Active Protocol: Document 12/07/20 10:30 DCW (Rec: 12/07/20 14:08 DCW [id number]) Knee Strength Knee Manual Muscle Testing Right Flexion (S2) 4 Good Extension (L3) 4+ Good+ Left Flexion (S2) 4+ Good+ Extension (L3) 5 Normal PT-OP-Q Treatments Start: 12/07/20 13:47 Freq: Status: Active Protocol: Document 12/21/20 10:30 DCW (Rec: 12/21/20 11:19 DCW [id number]) Cardio Equipment Recumbent Bicycle Duration (Minutes) 6 Resistance 3 Seat Position 4 Therapeutic Exercises Standing Exercises 4 Standing Exercise Name Hip Abd Side bilateral Resistance Green Equipment Used T-band 3 Standing Exercise Name Hip Ext Side bilateral Resistance Green Equipment Used T-band Other Exercises 1 Other Exercise Name Step-ups/downs Side right Equipment Used 6 step Manual Therapy Treatment Soft Tissue Mobilization 1 Body Location Scar mob Mobilization Type Cross-Friction Intensity/Depth Superficial Body Position Supine Joint Mobilizations 2 Joint R Patellofemoral Direction Inf-Sup Grade III Body Position Supine 1 Joint R Knee Direction P->A Grade II Body Position Hooklying PT-OP-T Assessment and Plan Start: 12/07/20 13:47 Freq: Status: Active Protocol: Document 12/21/20 10:30 DCW (Rec: 12/21/20 11:19 DCW [id number]) Physical Therapy Assessment Impairments Impairments Activity Tolerance,Functional Activities,Functional Mobility ,Gait,Pain,ROM,Strength Goals Three Impairment Pt displays limitations to right knee ROM, 5-86? Senior Living Goal (LTG) Pt to improve right knee ROM to 0-120? in order to return to prior level of function LTG Duration 02/06/21 Two Impairment Pt unable to participate in walks around [place] with his Short Term Goal (STG) Pt to increase 6 MWT to 1000' without an assistive device to show increased tolerance to gait STG Duration 01/06/21 Senior Living Goal (LTG) Pt to return to walking a full lap around [place] without increased knee pain LTG Duration 02/06/21 One Impairment Pt does not have an appropriate home exercise program Short Term Goal (STG) Pt does not have an appropriate HEP STG Duration 01/06/21 Assessment Summary Assessment PROM to 130 degrees today, pt feeling very good with overall function. Incision looking great, minimal puckering, nearly all scabbing has fallen off. Physical Therapy Plan Frequency and Duration Frequency of Treatment 2x/Week Duration of Treatment Two months Plan of Care Start Date 12/07/20 Plan of Care End Date 02/06/21 Therapeutic Interventions Therapeutic Interventions Gait Training,Joint Mobilizations,Manual Therapy, Neuromuscular Re-education, Patient/Caregiver Education, Self-Care/Home Management, Therapeutic Activities, Therapeutic Exercises Modalities Cold Pack/Ice Massage,Electric Stimulation,Hot Packs, Ultrasound Next Visit Focus/Plan Next Note Type Treatment Note Next Visit Plan ROM, strengthening
--- NOTE | 2020-12-23 10:30 | PT.OTN ---
Current Diagnoses Unilateral primary osteoarthritis, right knee (12/23/20) Stiffness of right knee, not elsewhere classified (12/23/20) Aftercare following joint replacement surgery (12/23/20) Physical Therapy Treatment Note PT-OP-A Visit Information Start: 12/07/20 13:47 Freq: Status: Active Protocol: Document 12/23/20 09:45 DCW (Rec: 12/23/20 10:30 DCW [id number]) Out-Patient Physical Therapy Visit Information Visit Information Visit Type Treatment Note Visit Start Time 09:45 Visit Stop Time 10:30 Total Visit Minutes 45 Visit Number 6 Number of CONTROLLER REPAIRER AND TESTER Visits 0 Evaluation Information Evaluation Date 12/07/20 PT-OP-B Current Condition Start: 12/07/20 13:47 Freq: Status: Active Protocol: Document 12/07/20 10:30 DCW (Rec: 12/07/20 14:08 DCW [id number]) Current Condition History of Current Condition Onset Date 11/30/20 Current Complaints Right knee pain, stiffness s/p partial knee replacement History of Current Condition Pt is a 69 year old male presenting to skilled therapy one week s/p right medial partial knee replacement. Pt has mainly been using his SPC to get around. Notes he felt great the first day or two after surgery, but on post-op day three, he was really stiff and sore. Pt reports he was instructed to work on getting it (his knee) to 90? and getting up and walking. Pt notes he has had a left foot drop for the last ~48 years, unsure of the cause, but believes he may have had polio in his youth. PT-OP-C Subjective Start: 12/07/20 13:47 Freq: Status: Active Protocol: Document 12/23/20 09:45 DCW (Rec: 12/23/20 10:30 DCW [id number]) OP-PT Subjective Patient Comments Patient Comments I'm getting occasional sharp pains, but it hasn't affected my range of motion. PT-OP-E Functional Tests Start: 12/07/20 13:47 Freq: Status: Active Protocol: Document 12/07/20 10:30 DCW (Rec: 12/07/20 14:08 DCW [id number]) Functional Tests 6 Minute Walk Test Distance 617' Device Used SPC Comments 1.71 ft/sec PT-OP-K Range of Motion Start: 12/07/20 13:47 Freq: Status: Active Protocol: Document 12/07/20 10:30 DCW (Rec: 12/07/20 14:08 DCW [id number]) Knee Goniometric Range of Motion Knee Right Patient Position Supine Flexion Active (degrees) 86 Flexion Passive (degrees) 90 Extension Active (degrees) 5 Extension Passive (degrees) 3 Knee ROM Limitations Knee ROM Limitations Soft Tissue Tightness,Pain, Swelling PT-OP-M Strength Start: 12/07/20 13:47 Freq: Status: Active Protocol: Document 12/07/20 10:30 DCW (Rec: 12/07/20 14:08 DCW [id number]) Knee Strength Knee Manual Muscle Testing Right Flexion (S2) 4 Good Extension (L3) 4+ Good+ Left Flexion (S2) 4+ Good+ Extension (L3) 5 Normal PT-OP-Q Treatments Start: 12/07/20 13:47 Freq: Status: Active Protocol: Document 12/23/20 09:45 DCW (Rec: 12/23/20 10:30 DCW [id number]) Cardio Equipment Recumbent Bicycle Duration (Minutes) 6 Resistance 4 Seat Position 3 Gym Equipment Shuttle Recovery Unilateral Squats Resistance 62# Shuttle Recovery Platform Stable Bilateral Squats Resistance 100# Shuttle Recovery Platform Stable Therapeutic Exercises Sitting Exercises 5 Sitting Exercise Name HS Side right Resistance Lv 3 4 Sitting Exercise Name LAQ Side right Resistance 5# Other Exercises 2 Other Exercise Name BOSU Lunge Side right Equipment Used BLue BOSU 1 Other Exercise Name Step-down Side right Equipment Used 6 step Manual Therapy Treatment Soft Tissue Mobilization 1 Body Location Scar mob Mobilization Type Cross-Friction Intensity/Depth Superficial Body Position Supine Joint Mobilizations 2 Joint R Patellofemoral Direction Inf-Sup Grade III Body Position Supine 1 Joint R Knee Direction P->A Grade II Body Position Hooklying PT-OP-T Assessment and Plan Start: 12/07/20 13:47 Freq: Status: Active Protocol: Document 12/23/20 09:45 DCW (Rec: 12/23/20 10:30 DCW [id number]) Physical Therapy Assessment Impairments Impairments Activity Tolerance,Functional Activities,Functional Mobility ,Gait,Pain,ROM,Strength Goals Three Impairment Pt displays limitations to right knee ROM, 5-86? Home Care Rn Goal (LTG) Pt to improve right knee ROM to 0-120? in order to return to prior level of function LTG Duration 02/06/21 Two Impairment Pt unable to participate in walks around [place] with his Short Term Goal (STG) Pt to increase 6 MWT to 1000' without an assistive device to show increased tolerance to gait STG Duration 01/06/21 Home Care Rn Goal (LTG) Pt to return to walking a full lap around [place] without increased knee pain LTG Duration 02/06/21 One Impairment Pt does not have an appropriate home exercise program Short Term Goal (STG) Pt does not have an appropriate HEP STG Duration 01/06/21 Assessment Summary Assessment Pt continues to show great progression, ROM currently WNL , just needs some continued quad strengthening and scar mobilization to decrease adhesion. Physical Therapy Plan Frequency and Duration Frequency of Treatment 2x/Week Duration of Treatment Two months Plan of Care Start Date 12/07/20 Plan of Care End Date 02/06/21 Therapeutic Interventions Therapeutic Interventions Gait Training,Joint Mobilizations,Manual Therapy, Neuromuscular Re-education, Patient/Caregiver Education, Self-Care/Home Management, Therapeutic Activities, Therapeutic Exercises Modalities Cold Pack/Ice Massage,Electric Stimulation,Hot Packs, Ultrasound Next Visit Focus/Plan Next Note Type Treatment Note Next Visit Plan ROM, strengthening
--- NOTE | 2020-12-28 16:44 | PT.OTN ---
Current Diagnoses Unilateral primary osteoarthritis, right knee (12/28/20) Stiffness of right knee, not elsewhere classified (12/28/20) Aftercare following joint replacement surgery (12/28/20) Physical Therapy Treatment Note PT-OP-A Visit Information Start: 12/07/20 13:47 Freq: Status: Active Protocol: Document 12/28/20 16:05 DCW (Rec: 12/28/20 16:44 DCW [id number]) Out-Patient Physical Therapy Visit Information Visit Information Visit Type Discharge Summary Visit Start Time 16:05 Visit Stop Time 16:30 Total Visit Minutes 25 Visit Number 7 Number of EXCEPTIONAL STUDENT EDUCATION AIDE Visits 0 Evaluation Information Evaluation Date 12/07/20 PT-OP-B Current Condition Start: 12/07/20 13:47 Freq: Status: Active Protocol: Document 12/07/20 10:30 DCW (Rec: 12/07/20 14:08 DCW [id number]) Current Condition History of Current Condition Onset Date 11/30/20 Current Complaints Right knee pain, stiffness s/p partial knee replacement History of Current Condition Pt is a 69 year old male presenting to skilled therapy one week s/p right medial partial knee replacement. Pt has mainly been using his SPC to get around. Notes he felt great the first day or two after surgery, but on post-op day three, he was really stiff and sore. Pt reports he was instructed to work on getting it (his knee) to 90? and getting up and walking. Pt notes he has had a left foot drop for the last ~48 years, unsure of the cause, but believes he may have had polio in his youth. PT-OP-C Subjective Start: 12/07/20 13:47 Freq: Status: Active Protocol: Document 12/28/20 16:05 DCW (Rec: 12/28/20 16:44 DCW [id number]) OP-PT Subjective Patient Comments Patient Comments I was on the floor, and got up kind of weird, and my knee was bothering me for a while afterward, but it seems to be better now. PT-OP-E Functional Tests Start: 12/07/20 13:47 Freq: Status: Active Protocol: Document 12/07/20 10:30 DCW (Rec: 12/07/20 14:08 DCW [id number]) Functional Tests 6 Minute Walk Test Distance 617' Device Used SPC Comments 1.71 ft/sec PT-OP-K Range of Motion Start: 12/07/20 13:47 Freq: Status: Active Protocol: Document 12/07/20 10:30 DCW (Rec: 12/07/20 14:08 DCW [id number]) Knee Goniometric Range of Motion Knee Right Patient Position Supine Flexion Active (degrees) 86 Flexion Passive (degrees) 90 Extension Active (degrees) 5 Extension Passive (degrees) 3 Knee ROM Limitations Knee ROM Limitations Soft Tissue Tightness,Pain, Swelling PT-OP-M Strength Start: 12/07/20 13:47 Freq: Status: Active Protocol: Document 12/07/20 10:30 DCW (Rec: 12/07/20 14:08 DCW [id number]) Knee Strength Knee Manual Muscle Testing Right Flexion (S2) 4 Good Extension (L3) 4+ Good+ Left Flexion (S2) 4+ Good+ Extension (L3) 5 Normal PT-OP-Q Treatments Start: 12/07/20 13:47 Freq: Status: Active Protocol: Document 12/28/20 16:05 DCW (Rec: 12/28/20 16:44 DCW [id number]) Cardio Equipment Recumbent Bicycle Duration (Minutes) 6 Resistance 5 Seat Position 3 Gym Equipment Shuttle Recovery Unilateral Squats Resistance 62# Shuttle Recovery Platform Stable Bilateral Squats Resistance 100# Shuttle Recovery Platform Stable Therapeutic Exercises Other Exercises 2 Other Exercise Name BOSU Lunge Side right Equipment Used Blue BOSU 1 Other Exercise Name Step-down Side right Equipment Used 6 step Manual Therapy Treatment Soft Tissue Mobilization 1 Body Location Scar mob Mobilization Type Cross-Friction Intensity/Depth Superficial Body Position Supine Joint Mobilizations 2 Joint R Patellofemoral Direction Inf-Sup Grade III Body Position Supine 1 Joint R Knee Direction P->A Grade II Body Position Hooklying PT-OP-T Assessment and Plan Start: 12/07/20 13:47 Freq: Status: Active Protocol: Document 12/28/20 16:05 DCW (Rec: 12/28/20 16:44 DCW [id number]) Physical Therapy Assessment Impairments Impairments Activity Tolerance,Functional Activities,Functional Mobility ,Gait,Pain,ROM,Strength Goals Three Impairment Pt displays limitations to right knee ROM, 5-86? Anatomical Embalmer Goal (LTG) Pt to improve right knee ROM to 0-120? in order to return to prior level of function LTG Duration Met Two Impairment Pt unable to participate in walks around [place] with his Short Term Goal (STG) Pt to increase 6 MWT to 1000' without an assistive device to show increased tolerance to gait STG Duration Met Anatomical Embalmer Goal (LTG) Pt to return to walking a full lap around [place] without increased knee pain LTG Duration Met One Impairment Pt does not have an appropriate home exercise program Short Term Goal (STG) Pt does not have an appropriate HEP STG Duration Met Assessment Summary Assessment Pt has made great preogress, has met all his goals. Current ROM 0-130, no difficulty with gait, feels confident at this time to progress strengthening on his own. Appropriate for d/c at this time. Physical Therapy Plan Frequency and Duration Frequency of Treatment 2x/Week Duration of Treatment Two months Plan of Care Start Date 12/07/20 Plan of Care End Date 02/06/21 Therapeutic Interventions Therapeutic Interventions Gait Training,Joint Mobilizations,Manual Therapy, Neuromuscular Re-education, Patient/Caregiver Education, Self-Care/Home Management, Therapeutic Activities, Therapeutic Exercises Modalities Cold Pack/Ice Massage,Electric Stimulation,Hot Packs, Ultrasound Discharge Physical Therapy Discharge Reasons Goals Met Next Visit Focus/Plan Next Note Type Discharge Summary
== END 2021-04-12 09:52 ==
LOC: PHYS 16:00
PROVIDERS: PCP Student in an Organized Health Care Education/Training Program; Referring Provider Physician Assistant; Visit Provider Physician Assistant
DX: M17.11 Unilateral primary osteoarthritis, right knee (principal); Z47.1 Aftercare following joint replacement surgery; M25.661 Stiffness of right knee, not elsewhere classified
CPT/HCPCS: 97110; 97140; 97161

== ENCOUNTER → 2021-10-24 09:31 | Outpatient (CLI) | payer MEDICARE, OTHER, SELFPAY ==
[2021-10-24 13:19] LABS: COVID19 -Nasal RAPID Negative (Negative)
== END ==
PROVIDERS: PCP Family Medicine; Visit Provider Surgery
DX: Z20.822 Contact with and (suspected) exposure to COVID-19 (principal); Z01.812 Encounter for preprocedural laboratory examination
CPT/HCPCS: 87635; C9803

== ENCOUNTER 2021-10-25 13:55 | Day surgery (SDC) | payer MEDICARE, OTHER, SELFPAY ==
--- NOTE | 2021-10-25 | PATH_ITS ---
[facility] Accession Number: [id number] . 01 Material submitted: . sigmoid colon - SIGMOID POLYP . 01 Diagnosis: Sigmoid Colon Polyp, Biopsy: Colonic mucosa with prominent benign lymphoid aggregate. Negative for serrated lesion, dysplasia or malignancy. MRV 10/27/2021 1220 Local . 01 Electronically signed: . Etienne Martin MD, PhD, Pathologist NPI- [id number] . 01 Gross description: . SIGMOID POLYP: Received in formalin is 1 fragment(s) of musa, soft tissue measuring 0.3 x 0.2 x 0.2 cm submitted entirely in 1 cassette(s) /ALDO 10/26/2021 1906 Local . 01 Pathologist provided ICD-10: K63.5 . 01 CPT . 336670 Specimen Comment: A courtesy copy of this report has been sent to [phone] Performed at: 01 [facility] [address] [place] [address], [place], [place] [id number] MD Dash Kowalski MD Phone: [phone]
[2021-10-25 14:14] VITALS: BMI 25.1
[2021-10-25 14:25] VITALS: BP 142/74; PULSE 69; RESP 20; TEMP 36.6; O2SAT 100
[2021-10-25] MEDS: LACTATED RINGERS 1,000 ML 200 ML IV (14:27)
--- NOTE | 2021-10-25 14:57 | PM.HP.1 ---
History of Present Illness History of Present Illness Date Patient Seen: 10/25/21 Time Patient Seen: 14:57 Chief complaint: SDC Narrative: The patient presents for colorectal screening. Last colonoscopy 2019 significant for a serrated polyp. No personal or family history of colon cancer. On further history denies any recent gastrointestinal symptoms. No nausea, vomiting, abdominal pain, loss of appetite, unexplained weight loss, change in bowel habits, diarrhea, constipation, melena, hematochezia, or bright red blood per rectum. Patient History Medical History Chronic pain of multiple joints Daytime sleepiness Depressive disorder, not elsewhere classified (2003) Fatigue Hypertension (~2003) Insomnia Obstructive sleep apnea Snoring Surgical History History of hernia surgery History of lumbar discectomy History of vasectomy Family & Social History Family History Father Cancer Mother Hypertension Brother No problems noted. Social History: household members spouse lives independently Yes caregiver/support person No Tobacco & Substance use: Smoking Status Former smoker alcohol intake frequency holiday/special occasion Substance Use Type does not use Meds Home Medications and Allergies Home Medications Medication Instructions Recorded Confirmed Type Enalapril Maleate (Vasotec) 30 mg PO QDAY ##0 06/10/10 10/25/21 History Respironics Dreamstation CPAP #1 ea 07/29/18 09/14/21 History Allergies Allergy/AdvReac Type Severity Reaction Status Date / Time Penicillins Allergy Severe Swelling Verified 10/25/21 14:12 of Lip/Tongue/Throat amoxicillin Allergy Swelling Verified 10/25/21 14:09 of Lip/Tongue/Throat Exam Vital Signs (past 8 hours): - 10/25/21 14:25 Temperature 97.8 F Pulse Rate 69 Respiratory Rate 20 Blood Pressure 142/74 H Pulse Oximetry 100 Oxygen Delivery Method Room Air Oxygen Delivery Method Room Air Narrative Exam Narrative: General adult male alert oriented no acute distress Chest nonlabored respirations Abdomen soft nontender nondistended Assessment & Plan Assessment & Plan narrative: The patient requires colorectal screening and colonoscopy is recommended. Technical details were discussed. Risks, benefits, alternatives explained. Risks including but not limited to myocardial infarction, aspiration, bleeding, pain, missed lesion, incomplete examination, need for further radiographic studies, colonic perforation, and need for major abdominal surgery were discussed. All questions were answered to their satisfaction, and they are in agreement with this plan. Time Spent With Patient Critical Care time: I spent a total of [] minutes of critical care time on this patient's care today; this time is exclusive of procedural time.
--- NOTE | 2021-10-25 14:59 | P.OP.COLON_ITS ---
Operative Date/Time/Diagnoses Date of procedure: 10/25/21 Time of procedure: 14:59 Pre-op diagnosis: Personal history of colon cancer Post-op diagnosis: same Procedure & Clinicians Study performed: colonoscopy Same procedure as scheduled: Yes Indications: personal history of colonic polyps. Family history of colon cancer Procedure Notes Procedure in detail: Medications: Conscious sedation using *mg IV midazolam and *mcg IV of fentanyl The history and physical was performed/updated and the patient is ASA class is *. The procedure was discussed in detail with the patient. Potential risks complications including infection, bleeding, missed diagnosis, perforation, need for surgery, and were explained. Their questions were answered and informed consent was obtained. Patient was brought to the procedure room and placed standard monitoring equipm ent. The patient's vital signs were monitored continuously throughout the entire procedure. Prior to starting time-out was performed. The patient was placed in the left lateral recumbent position. Procedural sedation was administered. Examination began with a thorough inspection of the perianal area there was no evidence of fissures, fistulae, external hemorrhoids or cutaneous malignancy. The colonoscopy scope was then placed into the anal canal and was advanced to the cecum, which was identified by the ileocecal valve, the appendiceal orifice and the confluence of the taenia. The scope was then slowly withdrawn examining colon thoroughly in all directions, irrigating it of any residual stool. FINDINGS 1. Sigmoid colon 45 cm from anal verge 3 mm polyp removed with biopsy forceps 2. Martinez and diverticulosis 3. Internal hemorrhoids-mild The patient tolerated the procedure well. They will be discharged once criteria are met. The prep was of good/excellent quality. The withdrawl time was 10 minutes. The sedation time was 19 minutes. Specimen(s): other (Sigmoid polyp) Complications: none Impression: Colonic polyp Post-procedure Recommendations: Colonoscopy in 5 years and High fiber diet Disposition: same day surgery
[2021-10-25] MEDS: MIDAZOLAM 5 MG/5 ML VIAL IV (15:06)
[2021-10-25] MEDS: fentaNYL 100 MCG/2 ML INJ IV (15:06)
[2021-10-25 15:30] VITALS: BP 116/60; PULSE 63; RESP 10; TEMP 36.6; O2SAT 97
[2021-10-25 15:35] VITALS: BP 115/59; PULSE 61; RESP 11; O2SAT 99
[2021-10-25 15:40] VITALS: BP 113/63; PULSE 60; RESP 12; O2SAT 98
[2021-10-25 15:45] VITALS: BP 123/66; PULSE 66; RESP 16; O2SAT 99
[2021-10-25 15:46] VITALS: BP 118/64; PULSE 60; RESP 12; O2SAT 98
== END 2021-10-25 16:20 | disposition home or self-care (01) ==
PROVIDERS: PCP Family Medicine; Referring Provider Surgery; Visit Provider Surgery
PROC: 0DJD8ZZ Inspection of Lower Intestinal Tract, Via Natural or Artificial Opening Endoscopic (ICD-10-PCS; CPT 45378; principal; 2021-10-25 15:00)
DX: Z12.11 Encounter for screening for malignant neoplasm of colon (principal); Z86.010 Personal history of colon polyps; Z80.0 Family history of malignant neoplasm of digestive organs; K57.30 Diverticulosis of large intestine without perforation or abscess without bleeding; K64.8 Other hemorrhoids; K63.5 Polyp of colon
CPT/HCPCS: 45380; 99152; J2250; J3010

== ENCOUNTER → 2023-04-26 11:12 | Outpatient (CLI) | payer MEDICARE, OTHER, SELFPAY ==
--- NOTE | 2023-04-26 11:15 | DI.RAD.S_ITS ---
PROCEDURE: XR CHEST 2V INDICATIONS: DYSPENA ON EXERTION TECHNIQUE: 2 views of the chest were acquired. COMPARISON: [facility], , CHEST 2 VIEW, 08/05/2006, 11:04. FINDINGS: Surgical changes and devices: None. Lungs and pleura: Lungs are clear. No pleural effusions or pneumothorax. Mediastinum: Mediastinal contours are normal. Heart size is normal. Bones and chest wall: No suspicious bony abnormalities. Soft tissues appear unremarkable. Mild degenerative changes of the spine. IMPRESSION: No acute cardiopulmonary process. Dictated by: Jesús Adkins M.D. on 04/26/2023 at 13:38 Approved by: Jesús Adkins M.D. on 04/26/2023 at 13:38
== END ==
LOC: RAD 11:13
PROVIDERS: PCP Family Medicine; Referring Provider Family Medicine; Visit Provider Family Medicine
DX: R06.09 Other forms of dyspnea (principal)
CPT/HCPCS: 71046

== ENCOUNTER → 2023-05-10 15:13 | Outpatient (CLI) | payer MEDICARE, OTHER, SELFPAY ==
--- NOTE | 2023-05-10 | DI.NM.S_ITS ---
PROCEDURE: NM EXERCISE TREADMILL NON NUC COMPARISON: None INDICATIONS: Dyspnea on exertion FINDINGS: Rest ECG sinus rhythm, RBBB. Bhavik protocol 6:36, maximum heart rate 128 bpm (88% peak predicted, maximum blood pressure 208/82, 6.7 METS, ERLIN -23%. Exercise ECG sinus tachycardia, [address] segment depressions with T wave inversions in leads II, V5 and V6. Frequent PVCs. The patient did not complain of exercise-induced chest pain. IMPRESSION: Abnormal study. ST segment depressions with new T wave inversions on exercise ECG suggestive of inducible ischemia. Frequent exercise-induced PVCs. Borderline hypertensive response to exercise. Normal heart rate response. Good exercise capacity. Dictated by: Supriya Hatch D.O. on 05/10/2023 at 17:51 Approved by: Supriya Hatch D.O. on 05/10/2023 at 17:57
== END ==
PROVIDERS: PCP Family Medicine; Referring Provider Family Medicine; Visit Provider Family Medicine
DX: R94.39 Abnormal result of other cardiovascular function study (principal); R06.09 Other forms of dyspnea
CPT/HCPCS: 93017